=== PATIENT | male | born 1930 | race Caucasian/White ===

== ENCOUNTER → 2017-10-26 | Outpatient (CLI) | payer OTHER ==
[~2017-10-26] VITALS: Ht 170.2 cm; Wt 65.6 kg
[~2017-10-26] MED LIST: CENTRUM SILVER1 EAC2; DONEPEZIL HCL 55 M1; NAMENDA XR14 MG; OCUVITE ADULT1 EAC1; PAXIL10 MG; SIMVASTATIN20 MG
[2017-10-26 15:20] VITALS: BP 127/96
== END ==
LOC: SEN 10:22
DX: N18.9 Chronic kidney disease, unspecified (principal); E78.5 Hyperlipidemia, unspecified; F32.9 Major depressive disorder, single episode, unspecified; G30.9 Alzheimer's disease, unspecified; F02.80 Dementia in other diseases classified elsewhere, unspecified severity, without behavioral disturbance, psychotic disturbance, mood disturbance, and anxiety

== ENCOUNTER → 2018-07-26 | Outpatient (CLI) | payer OTHER | LOC: SEN 15:45 | DX: G30.9 Alzheimer's disease, unspecified (principal); E78.5 Hyperlipidemia, unspecified; N40.0 Benign prostatic hyperplasia without lower urinary tract symptoms; R63.4 Abnormal weight loss; R53.1 Weakness; R53.83 Other fatigue ==

== ENCOUNTER 2018-10-31 12:09 | Inpatient (IN) | payer OTHER ==
[~2018-10-31] VITALS: Ht 172.7 cm; Wt 55.4 kg
--- NOTE | ~2018-10-31 | D ---
[facility] [place] [address] DISCHARGE SUMMARY Name: STEFANIE MILLAN Room #: 528B-B DIS IN M.R.#: [id number] Admission: 10/31/18 ������������������ Attend Phys: Fabio Bourne DO Discharge: 11/06/18 ������������������ Date of : 31 Report #: [id number] THIS REPORT FOR: //name// CC: Fabio Bourne Daren Akkulugari DATE OF SERVICE: 11/06/2018 ATTENDING PSYCHIATRIST: Fabio Bourne DO. CASH APPLICATION REPRESENTATIVE AT THE TIME OF DISCHARGE: Sulma Curry MD. DISCHARGE DIAGNOSES: Major neurocognitive disorder, likely due to Alzheimer disease, advanced, with behavioral disturbance. Behavioral disturbance portion is improved. Medical comorbidities include hypertension, hyperlipidemia. DISCHARGE DIET: Mechanical soft with Ensure supplements t.i.d. with meals. Activity level as tolerated. The patient will require memory care 12/12 supervision. He is discharged back to the [facility], psychiatric and medical care per that facility. The patient may resume hospice care at the discretion of his 's decision maker would make, which is probably a good idea. DISCHARGE MEDICATIONS: As follows: Risperidone 1 mg p.o. b.i.d. for impulse control. Other medications have been stopped due to his advanced dementia and pill burden. LABORATORY DATA: This admission are as follows: On 10/31, white count 7.7. H and H 10.6 and 31.9, platelet count 220. Chemistries from 10/31, sodium 142, potassium 4.6, chloride 110, bicarbonate 25, BUN 36, creatinine 2.2, which gives him a GFR of 28, ALT 17, albumin 3.1. Urinalysis was negative other than trace protein. REASON FOR HOSPITAL ADMISSION: Agitation and refusal of cares. HOSPITAL COURSE: The patient was admitted to the Geriatric Psychiatry Unit. He did have wandering symptomatology and advanced dementia. Risperidone was started I believe at 0.5 mg twice a day, increased to 1 mg twice a day. He did have some instances of agitation, some brief hitting when he was being changed to bathe. This subsided generally as the risperidone was advanced. I do not expect him to be extinguished entirely. At the time of discharge, he was not suicidal or homicidal, was pleasant and calm. MUSCULOSKELETAL EXAM: He had a frail appearing gait, but was not requiring a walker. [facility] [address] [place] [address] DISCHARGE SUMMARY Name: STEFANIE MILLAN Room #: 528B-B DIS IN M.R.#: [id number] Admission: 10/31/18 ������������������ Attend Phys: Fabio Bourne DO Discharge: 11/06/18 ������������������ Date of : 31 Report #: [id number] MENTAL STATUS EXAMINATION: This is a well-developed, ill, 88-year-old male, appearing with advanced dementia. Attention impaired. Concentration impaired. Speech variable, nonsensical at times. Thought process often nonlinear. Thought content, varied themes, often were nonsensical, oriented to person. Denied SI or HI. He was assumed to be visual, auditory hallucinations at times. Memory noted to be grossly impaired. Insight impaired. Judgment impaired. Fund of knowledge well below average. Prognosis for this patient is poor. RECOMMENDATIONS: Resumption of hospice care. I think the benefits outweigh the risks of continuing the antipsychotic at this point. Life expectancy of this patient would be under a 12-month period. ��������������������������������������������� ���������������������������������������� By: ��������������������������������������������� [id number] Fabio Bourne, /nt
[2018-10-31 12:11] VITALS: BP 151/58
--- NOTE | 2018-10-31 12:47 | NUR ---
PER MATTHEWINJURY PREVENTION COORDINATOR WITH HOSPICE, REPORT FOLLOWS: Increased aggro bx, spitting out meds incl. Seroquel on 10/22/18. D/c'd all Rx incl. Haldol. and Seroquel. Started Seroquel gel, topical. Facility hopes to get pt admitted for in pt psych. Facility did not involve hospice in decision to send to hospital. Hospice reports that JENISE Gill, will come to hospital to consult with family about decision to revoke hospice to allow for in pt management. Matthew cell phone: [phone]
[2018-10-31 14:22] LABS: HEMATOCRIT 31.9 % (42.0-52.0); HEMOGLOBIN 10.6 gm/dL (14.0-18.0); MCH 29.9 pg (26.0-34.0); MCHC 33.3 g/dL (28.0-37.0); MCV 89.8 fL (80.0-100.0); RBC 3.56 mil/uL (4.50-6.00); RDW 14.7 % (10.5-14.5); WBC 7.7 thou/uL (4.0-11.0)
[2018-10-31 14:28] LABS: CALCIUM 9.2 mg/dL (8.5-10.1); CREATININE 2.2 mg/dL (0.7-1.3); POTASSIUM 4.6 mmol/L (3.5-5.1)
[2018-10-31 14:29] LABS: URINE BILIRUBIN NEGATIVE (Negative); URINE BLOOD NEGATIVE (Negative); URINE CLARITY CLEAR; URINE COLOR YELLOW; URINE GLUCOSE-RANDOM* NEGATIVE (Negative); URINE KETONES NEGATIVE (Negative); URINE LEUKOCYTES-REFLEX NEGATIVE (Negative); URINE NITRITE-REFLEX NEGATIVE (Negative); URINE PROTEIN (DIPSTICK) TRACE (Negative); URINE UROBILINOGEN 0.2 E.U./dl (0.2-1.0)
[2018-10-31 14:34] LABS: ALBUMIN 3.1 g/dL (3.4-5.0); TOTAL BILIRUBIN 0.4 mg/dL (<0.1-1.0); TOTAL PROTEIN 6.7 g/dL (6.4-8.2)
[2018-10-31 15:44] VITALS: BP 140/75
--- NOTE | 2018-10-31 16:00 | NUR ---
PT ARRIVED WITH [facility] PT IN W/C FROM [facility]. PT ADMITTED FOR AGGRESSIVE BEHAVIOR AGAINST STAFF, REFUSING TO TAKE PO MEDS, SPITTING MEDS OUT, AND FIGHTING ADLS. PT WAS TRYING TO KICK AT NURSE WHEN PUTTING GRIPPER SOCKS ON. PT ALSO SWATTING AT WHEN SHE WAS TRYING TO PUT SOCK ON OTHER FOOT. PT CURSING ALSO. PT STATED HE CAN WALK WITHOUT WALKER. PT ORIENTED TO SELF. SIGNED ADMIT PAPERS DUE TO BEING DPOA. PT APPEARS COMFORTABLE EXCEPT WHEN PUTTING ON GRIPPER SOCKS. PT HAS LONG TOE NAILS.
[2018-10-31 17:00] VITALS: BP 126/95
--- NOTE | 2018-10-31 17:30 | NUR ---
PT EATING DINNER WITH AT SIDE. PT FEEDING SELF.
--- NOTE | 2018-10-31 18:00 | NUR ---
LAYED PT DOWN IN BED. PT DIDN'T HAVE A BRIEF ON, STATED THAT HE USUALLY WEARS ON. PT HAS BED ALARM ON.
[2018-10-31 21:17] VITALS: BP 104/51
--- NOTE | 2018-10-31 22:03 | NUR ---
ASSUMED CARE OF THE PT AT 1914 PM. THE PT WAS LYING ON HIS RIGHT SIDE IN BED WHEN THIS PRODUCT TRAINER CAME ON DUTY. THE PT ATTEMPTED TO HIT THIS PRODUCT TRAINER WHEN SHE WENT TO ASSESS HIM. REMAINS ON 12 MINUTE CHECKS FOR HIS SAFETY.
--- NOTE | 2018-11-01 00:35 | NUR ---
THE PT REFUSED HIS HS MEDICATION EARLIER IN THE SHIFT. ATTEMPTED TO REDIRECT THE PT WITH NO SUCCESS. REMAINS ON 12 MINUTE CHECKS FOR HIS SAFETY.
--- NOTE | 2018-11-01 06:41 | NUR ---
THE PT SLEPT 8.6 HOURS LAST NIGHT.
[2018-11-01 07:30] VITALS: BP 114/92
--- NOTE | 2018-11-01 08:25 | NUR ---
PT UP WALKING AROUND THIS AM IN DAY ROOM. PT REFUSED TEMP TO BE TAKEN. HAD TO HOLD HAND IN ORDER FOR BP TO BE TAKEN, PT STANDING WITH AM VITALS. PT NEEDED ENCOURAGED TO SIT DOWN TO EAT. PT DID TAKE RISPIRADOL CRUSHED IN PUDDING, ONLY TOOK ONE BITE OF PUDDDING.
[2018-11-01 09:14] VITALS: BP 114/92
--- NOTE | 2018-11-01 12:05 | NUR ---
SW called in spoke with pt in schedule a family meeting. CARL schedule a meeting November 05, 2018.
--- NOTE | 2018-11-01 14:00 | NUR ---
CHECKED PT FOR INCON. WASN'T INCON. AT THIS TIME. PT LAYED DOWN FOR NAP.
--- NOTE | 2018-11-01 15:56 | NUR ---
PT STILL WALKING AROUND UNIT. PT HASN'T BEEN ABLE TO ATTEND GROUP TODAY. TOO DISRUBTIVE IN GROUPS WITH WONDERING AROUND.
--- NOTE | 2018-11-01 17:16 | NUR ---
PT DIDN'T SIT VERY LONG FOR DINNER. PT DID EAT A FEW BITES OF POTATOES AND TURKEY, AND ALSO PAGAN ICEY.
--- NOTE | 2018-11-01 17:52 | H ---
[facility] [place] [address] HISTORY AND PHYSICAL Name: STEFANIE MILLAN Room #: 528B-B ADM IN M.R.#: [id number] Admission: 10/31/18 ������������������ Attend Phys: Fabio Bourne DO Discharge: ������������������ Date of : 31 Report #: [id number] THIS REPORT FOR: //name// CC: Fabio Bourne Daren Akkulugari DATE OF SERVICE: 10/31/2018 INPATIENT PSYCHIATRIC EVALUATION [employer]CHOOL ART TEACHER: Rodrigo Ventura MD REASON FOR ADMISSION: Agitation, resistive to care at [facility]. SOURCES OF INFORMATION: long term records, chart review from the ER, interview with the patient as well as a bit of collateral from the patient's . HISTORY OF PRESENT ILLNESS: Is as follows: This is an 88-year-old male who presented to the Emergency Department at [facility] in [place], [place]. The patient was initially referred by the [facility] where he resides. He does have a major neurocognitive disorder. In the last one week, he has been increasingly agitated, aggressive with staff and confused. He is no longer willing to take his daily medications and the spouse is unsure of when he last took them. The patient was formally on hospice. His decided to revoke it in order to be evaluated and admitted to the hospital. PAST MEDICAL HISTORY: The patient has a past medical history of elevated cholesterol, hypertension, Alzheimer's related dementia. HOME MEDICATIONS: Multivitamin- Ocuvite 50+ soft gels, donepezil 5 mg daily, memantine XR probably 28 mg dose, simvastatin and paroxetine 10 mg daily. SOCIAL HISTORY: The patient does not drink, smoke or use illicit drugs currently. Remote history is unknown. REVIEW OF SYSTEMS: From the Emergency Room: CONSTITUTIONAL: Denies fever, chills, malaise or unexplained weight change. EYES: Denies eye pain, visual change or discharge. HENT: Denies hearing changes, ear drainage, ear infections, ear pain, neck pain or neck stiffness. RESPIRATORY: Denies cough, shortness of breath, hemoptysis or respiratory distress. [facility] [address] [place] [address] HISTORY AND PHYSICAL Name: STEFANIE MILLAN Room #: 528B-B [facility] IN M.R.#: [id number] Admission: 10/31/18 ������������������ Attend Phys: Fabio Bourne DO Discharge: ������������������ Date of : 31 Report #: [id number] CARDIOVASCULAR: Denies chest pain with exertion or edema. GASTROINTESTINAL: Denies abdominal pain, nausea, vomiting or diarrhea. GENITOURINARY: Denies burning, frequency or dysuria. MUSCULOSKELETAL: Denies back pain, joint pain, muscle weakness or myalgias. SKIN: Denies rash. NEUROLOGIC: Denies weakness, headache or loss of consciousness. PSYCH: As above, otherwise 10-point review of systems done in the Emergency Room was negative. PHYSICAL EXAMINATION: VITAL SIGNS: The patient's vital signs on the day of admission, BP 151/58, pulse ox 94% on room air, temperature 36.9, pulse 84, respirations 17, weight 55.423 kilos. Physical exam was grossly normal. MUSCULOSKELETAL: Not ambulatory to my examination. MENTAL STATUS EXAM: This is a well-developed, ill-appearing male appearing at least stated age. Attention limited. Concentration limited. Speech is normal in rate. Thought process linear limited. Thought content focused on not giving up blood samples. No psychomotor retardation. Some psychomotor agitation. Denied auditory, visual, or tactile hallucinations. Denied suicidal intent. Some helplessness and hopelessness. Homicidal intent and plan. Memory grossly noted to be impaired. Insight impaired. Judgment impaired. Fund of knowledge below average. The patient was resistive with obtaining blood and urine sample. He did have to be forcibly held down. Review of medications from the nursing facility, most recent weight was 121.5 pounds, he had a number of PRNs including hyoscyamine, Dulcolax, lorazepam, Haldol, acetaminophen, ondansetron, protein nutritional shake and Seroquel looks like it was topical Seroquel. The patient also has history of BPH. Reliable history could not be obtained. LABORATORY AND DIAGNOSTIC DATA: Urine protein trace. Labs: Sodium 142, potassium 4.6, chloride 110, bicarbonate 25, anion gap 7, BUN 36, creatinine 2.2, estimated GFR 28, glucose 90, calcium 9.2, total bili 0.4, AST 21, ALT 17, alk phos 61, total protein 6.7, albumin 3.1. White count 7.7. H and H 10.6 and 31.9, platelet count 220. Urinalysis is negative. FORMULATION: An 88-year-old male sent from nursing facility for aggressive resistive behaviors. Hospice revoked, now requesting formal psychiatric treatment. PLAN: Admit to Geriatric Psychiatry, Evaluate and Stabilize Is as follows: Start risperidone 0.25 mg p.o. b.i.d. for impulsivity and aggressiveness. Normal PRNs were ordered. We will keep the medication dose low due to his kidney function. ESTIMATED LENGTH OF STAY: 7-[address] [address] HISTORY AND PHYSICAL Name: STEFANIE MILLAN Room #: 528B-B ADM IN M.R.#: [id number] Admission: 10/31/18 ������������������ Attend Phys: Fabio Bourne DO Discharge: ������������������ Date of : 31 Report #: [id number] STRENGTHS: He is insured. He has supportive family. WEAKNESSES: Advance of age and advance of neurodegenerative disorder, deconditioning. Time spent on interview, review of records, coordination of care is approximately 60 minutes. Greater than 50% was spent on coordination of activities. ��������������������������������������������� <ELECTRONICALLY SIGNED> ���������������������������������������� By: Fabio Bourne DO ��������������������������������������������� 11/01/18 1752 [id number] 15 Fabio Bourne DO /nt
[2018-11-01 19:40] VITALS: BP 115/92
[2018-11-02 00:56] VITALS: BP 115/92
--- NOTE | 2018-11-02 03:14 | NUR ---
PT OUT IN DAY AREA, WANDERING AIMLESSLY. UNABLE TO RESPOND TO SIMPLE QUESTIONS ABOUT FEELINGS AND GOALS. FAIRLY COOPERATIVE WITH PHYSICAL ASSESSMENT, BUT NOT WITH TAKING HIS ORAL TEMP. TOOK HS MED CRUSHED IN APPLESAUCE, BUT REFUSED TO TAKE MORE THAN 2 SPOONFULS, BUT ENOUGH TO INGEST MEDS. NEEDED TO BE REMOVED FROM UNMADE BED IN HIS ROOM AND ASSISTED TO HIS REGULAR BED. ONCE IN HIS OWN BED, SLEPT WELL THROUGH THE NIGHT TO THIS POINT.
[2018-11-02 08:20] VITALS: BP 142/68
--- NOTE | 2018-11-02 09:26 | NUR ---
VERY INTRUSIVE THIS AM-PICKING UP FOOD OFF OF PEERS PLATES AT BREAKFAST AND EATING IT-ATTEMPTING TO PUSH FEMALE PEER IN WHEELCHAIR-RAMMING WHEELCHAIR INTO LOCKED EXIT DOOR AND OFFICE DOORS-CONVERSATION INCOHERENT WILL STATE 1-2 UNRELATED WORDS -RESTLESS APPEARS UNABLE TO SIT STILL FOR ANY PERIODS OF TIME-DID TAKE MEDS CRUSHED IN APPLESAUCE-NO FACIAL GRIMACING OR VERBALIZATIONS OF PAIN/DISCOMFORT-DENIES PAIN WHEN ASKED-GAIT STEADY WITHOUT ASSISTIVE DEVICES.
--- NOTE | 2018-11-02 12:51 | NUR ---
PSYCHOSOCIAL ASSESSMENT Diagnosis: MAJOR NEUROCOGNITIVE DISORDER Admit Date: 10/31/18 Psychiatrist: ANDREEA Symptoms associated with current admission: Violence/aggression Activity level change Poor impulse control Presenting problems: Pt was exhibiting aggression towards staff, and his peers. Precipitating Factors: Non-compliance psychothx Non-compliance medication Comments: Pt was not compliant with his medication. History of High Risk Behavors: Hx violence/aggression Suicide Risk Factors: D A-Signs of alcohol/substance abuse w/ suicide ideation B-Recent suicidal thoughts or attempts C-Recent thoughts or attempts of harming someone else D-Altered mental status due to psychiatric/chem dep etiology E-The behavior exists - add comment PSYCHIATRIC HISTORY Age of onset: 88 Prior hospitalizations: Denies hx hospitalization Hospital names and dates, if available: Most Recent Outpatient HX: Psychiatrist Additional information: Legal Status: DPOA Guardian/Conservatorship type: DPOA Contact name: Leyla Dyer Contact phone: [phone] Other: Name: Phone: Other legal issues: (Arrests/convictions Current Status) None P.O. Name and Phone #: FAMILY HISTORY Place of : [place], [place] Raised in: [place] # Siblings & order: Pt had a sister, oldest Describe relationships within family of origin: Pt had a sister who 10 years ago. Pt visited his sister everytime he was in [place] Any psychiatric or substance abuse problems within family of origin: N Has patient been sexually or physically abused, neglected or been taken advantage of financially? N Has the abuse been reported? N Other pertinent family information: Marital history/significant relationships: Domestic violence: N Children ages & who is caring for them: Pt has four adult children Is child welfare involved? N Drug history: None Alcohol Use: Frequency: Quantity: Have you ever felt you ought to Cut down on drinking? Have people Annoyed you by criticizing your drinking? Have you ever felt bad or Guilty about your drinking? 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 AXIS SCREENING TOOL [place] I Mood Disorders: Depression [place] II Personality/Mental Retardation: [place] III Medical Impairment: Constipation HTN Alzheimer's [place] IV Problem(s) with: Interaction w/ legal sys Other psych/environ prob [place] V: 40-Major impairment Additional [place] comments: PERSONAL BACKGROUND Relevant cultural issues (ethnicity, values, beliefs, spiritual): Spiritual Protestant: He believes in God Importance of nondenominational to patient: Medium What hobbies/interests does the patient have? 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 Y Occupational/Work: Do you work? N Do you want to work? N How many hours do you work/week? 0 How many jobs have you had in the past 5 years? 0 Do you need assistance finding a job? N Does the patient need assistance in job training? N Source of income: [place] SSI Does patient have a Payee? Y Payee name: Leyla Newton Approximate monthly income: 1000 Does patient have adequate funds for next 30 days? Y Education background: Post-graduate school Highest grade completed: 12th grade Other Educational/training programs: Functional deficits: Explain functional deficits: Current living situation: Facility (B&C, SNF,ILF) Address/phone where pt. is living: [facility] Does the patient plan to continue there after DC? Yes Patient lives with: Unrelated adult Will family/significant other be involved in treatment? 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 Patient's perception of current social insurance adviser/case management needs: Pt stated that SS is someone who assist with care. PRELIMINARY DISCHARGE PLAN Discharge plan/Community resource contacts: Pt will d/c to [facility] Discharge needs: Pt will be transported by Problems anticipated on discharge: Compliance w/ med regimen Comments: (factors affecting DC plan/pt. response/interventions) Pt will be d/c to a memory care unit in [facility]
[2018-11-02 20:13] VITALS: BP 83/40
--- NOTE | 2018-11-03 00:04 | NUR ---
This nurse assumed care of patient at 1900. Patient ambulating about the unit at start of shift. Patient needed multiple re-directions to leave other peers rooms. Patient had difficulty sitting in one place more than a couple minutes. Patient intrusive with other staff/peers at times. Patient attempting to push other w/c's and use others walker. Patient was able to eat 100% snack with frequent cues. Patient took medications crushed without difficulty. Patient alert and oriented x person only. Patient speaking using word salad. Patient rambling and mumbling to self and to others. Difficulty answering yes/no questions. Patient would start to talk about other irrelevant topics. Patient had difficulty following verbal cues alone but was easier to re-direct with verbal and tactile cues combined. Patient was assisted with toileting needs and assisted to bed. Patient has been in bed resting quietly.
[2018-11-03 07:25] VITALS: BP 113/65
--- NOTE | 2018-11-03 16:03 | NUR ---
[id number]: Report rec from [facility] shift, care assumed. Ambulatory from room to DR for a.m. meal, feeds self with set-up assistance, appetite poor, requires close monitoring due to impaired cognitive status. Takes meds crushed with ice cream, resistant to staff. Wanders DR jaja and moves furniture, frequent re-direction needed.
[2018-11-03 19:46] VITALS: BP 104/72
--- NOTE | 2018-11-04 05:16 | NUR ---
Care assumed of patient at 1900: Patient ambulating about the unit upon start of shift. Patient wandering down halls, in and out of rooms. Patient monitored q12 minutes and PRN for safety. Patient able to report his last name to this nurse. Patient unable to focus to answer any other questions. Patient speaking in word salad. Unknown who he is speaking to or what it is about. Some words audible, others are mumbled. Patient took medications crushed without difficulty. Patient hyperactive. Assessment completed while walking the halls. Patient ate 2 bites of snack then started to ambulate and could not focus. Patient moving furniture about day room. Patient incontinent of bladder and provided sorin care by staff. Patient resistive of cares at times. Needed encouragement to allow staff to assist him. Patient was able to lay in bed and has been resting quietly throughout the night.
[2018-11-04 07:30] VITALS: BP 115/58
--- NOTE | 2018-11-04 11:32 | NUR ---
PT OBSERVED TO HAVE TENSE "PAINED" FACIAL EXPRESSION-RESTLESS APPEARS UNABLE TO SIT STILL FOR ANY EXTENDED PERIODS OF TIME-INTRUSIVE ENTERING THE ROOMS OF PEERS AND TAKING FOOD OFF OF OTHERS TRAYS-WILL WANDER INTO WOMANS ROOMS AND ATTEMPT TO GET INTO BED WITH THEM-WILL BECOME RESISITVE WITH REDIRECT AND AGITATED AT TIMES BUT NOT PHYSICALLY COMBATIVE BEHAVIOR REPORTED OR OBSERVED
--- NOTE | 2018-11-04 11:42 | NUR ---
Sw redirected pt on several occasions and provided reassurance and guided him to sit and rest and offered him something to drink which he declined. Pt was able to rest and sit for awhile, he was unable to communicate all of his needs but he was in pleasant mood and easily redirected
--- NOTE | 2018-11-04 15:42 | NUR ---
Wilmar faxed updated notes to Emelia Jarvis
[2018-11-04 19:50] VITALS: BP 105/59
[2018-11-04 19:59] VITALS: BP 105/59
--- NOTE | 2018-11-05 06:25 | NUR ---
Care assumed of patient at 1900 on 11/04/18. Patient ambulating about day room and hallways. Patient re-directed out of other rooms frequently. Patient easier to re-direct this shift. Patient appears to be able to process directions, verbal and tactile cues, with less difficulty. Patient took medication crushed with applesauce with no difficulty. Patient incontinent of bladder. Madiha care provided. Patient speaking to furniture, [place], etc. Unknown of /VH. No s/s of distress present. Appears relaxed. Alert and oriented to person only. Perplexed look present with difficulty making eye contact. Patient assisted to bed and slept 8.4 hours this shift.
[2018-11-05 07:45] VITALS: BP 117/51
[2018-11-05 08:30] VITALS: BP 117/51
--- NOTE | 2018-11-05 09:00 | NUR ---
PT EATING BREAKFAST THIS AM. PT TOOK MED THIS AM CRUSHED IN OATMEAL. PT LUNGS CLEAR. PT EASILY DISTRACTED. PT GETS UP AND WALKS AROUND THE UNIT. PT HOLDS ONTO GOWN INTO A BALL IN FRONT OF HIM. PT RAMBLES WHEN SPEAKING.
[2018-11-05] MEDS ORDERED: RISPERDAL 1 MG T1 MG PO (12:18)
--- NOTE | 2018-11-05 16:13 | NUR ---
CARL spoke with Debbie in admission at [facility]. She mention that pt was showing agitation, and resistance, and the pt will not be able to come back with those displayed behaviors. She mention that pt will need a letter from the psychiatrist stating that he is not a danger to self or others. CARL faxed over the document. CARL explained that Dr. Bourne will accept the pt for one more day, and then he will need to d/c tomorrow, November 06, 2018.
[2018-11-05 20:04] VITALS: BP 151/87
--- NOTE | 2018-11-06 03:43 | NUR ---
NURSES NOTES - ASSUMED CARE OF PT AT APPROXIMATELY 1900. THROUGHOUT THE SHIFT THE PATIENT HAS BEEN IN BED WITH EYES CLOSED LAYING ON HIS LEFT SIDE. RR ARE EVEN AND UNLABORED, NO S/S OF DISTRESS. NOTED. DURING MED PASS THIS NURSE WAS UNABLE TO AROUSE PT EVEN THOUGH HE WOULD MOVE HIS BODY FURTHER AWAY. THIS NURSE ASKED IF HE WAS REFUSING MEDS AND THIS NURSE RECEIVED AND UP DOWN MOTION OF HIS HEAD. HE WOULD NOT FURTHER DIVULGE ANY OTHER INFORMATION TO THIS NURSE. WILL CONTINUE TO MONITOR MOOD AND BX FOR CHANGES.
--- NOTE | 2018-11-06 05:46 | NUR ---
IT WAS REPORTED TO THIS NURSE THAT STEFANIE GOT SIX HOURS OF SLEEP LAST NIGHT.
--- NOTE | 2018-11-06 08:12 | HC ---
[facility] [place] [address] CONSULTATION Name: STEFANIE MILLAN Room #: 528B-B ADM IN M.R.#: [id number] Admission: 10/31/18 ������������������ Attend Phys: Fabio Bourne DO Discharge: ������������������ Date of : 32 Report #: [id number] THIS REPORT FOR: //name// CC: Fabio Bourne Daren Akkulugari DATE OF SERVICE: 11/02/2018 INTRODUCTION: The patient is an 88-year-old male who has been admitted to the Behavioral Health floor at [facility]. I am being consulted to see him for a general foot care as he has severe onychodystrophy and has not had a nail trimming in over a year. PAST MEDICAL HISTORY: With regard to this consultation is otherwise unremarkable. PHYSICAL EXAMINATION: Pedal exam reveals dorsalis pedis, posterior tibial pulses graded at 1/4. Capillary refill time is within normal limits. Neurologically, the patient is grossly intact to all sensory stimulus including sharp, dull, proprioceptive and vibratory sensations. These assessments are somewhat difficult as the patient is not completely oriented and slightly combative. His nails are thickened and elongated, show clinical evidence of onychomycosis in varying degrees. Several of his nails are 2-3 cm in length. There are no acute findings with regard to his clinical examination. Nails were debrided. No underlying pathology was noted at the time of treatment. IMPRESSION: Onychodystrophy associated with onychomycosis, bilateral feet. PLAN: The patient's nails were debrided as mentioned. No additional treatment was required. It has been my pleasure having the opportunity of caring for the patient. I would be pleased to follow up with him upon request. ��������������������������������������������� <ELECTRONICALLY SIGNED> ���������������������������������������� By: Girish Landin DPM ��������������������������������������������� 11/06/18 0812 [id number] Girish Landin DPM /nt
[2018-11-06 08:55] VITALS: BP 143/69
--- NOTE | 2018-11-06 16:02 | NUR ---
Patient Name: STEFANIE MILLAN Admission Date: 10/31/18 DISCHARGE PLAN: Pt will d/c to [facility] Assessment: Pt was assessed by Dr. Bourne, and diagnosed with Major Neurocognitve Disorder Level II Assessment: None Transportation: Pt will be d/c by [facility] staff. Special Instructions/Notes: Pt will need a memory care unit. DISCHARGE TO FACILITY: Memory Care unit Facility: [facility] Fax: Address: [address] [place] [phone] Contact Name: Debbie PCP: BRYAN Psychiatrist: BRENT psychiatrist
--- NOTE | 2018-11-06 16:43 | NUR ---
ASSUMED CARE OF PATIENT AT 0715, [facility]. PATIENT SLEEPING IN BED MOST OF THE MORNING, PATIENT VERY AGITATED THIS AM, WHEN TRYONG TO WAKE HIM UP, PATIENT DID TAKE 1 TABLET THIS AM. PATIENT WAS INCONTINENT X 1 THIS AM, PATIENT CLEANED UP AND BRIEF APPLIED, PATIENT CONTINUED TO REST IN THE BED, THIS RN PUT BOTTOMS ON THE PATIENT WITH HELP, AND HE AMBULATED OUT TO THE DINING AREA, WHERE HE HAD LUNCH PRIOR TO DISCHARGE. PATIENT WILL BE DISCHARGING TO [facility], REPORT CALLED TO LORENE MCKEE/CLAUDIA AT THE FACILITY. ALL PERSONAL BELONGINGS SENT WITH THE PATIENT, AND ALL DISCHARGE PAPERWORK SENT WITH THE TRANSPORTER.
== END 2018-11-06 15:43 | DRG 56 ==
LOC: ER 12:09 → EROBS 15:13 → SBH 15:13
PROVIDERS: Physician Assistant; ADMIT Psychiatry & Neurology Psychiatry
DX: G30.9 Alzheimer's disease, unspecified (principal); E43 Unspecified severe protein-calorie malnutrition; F02.81 Dementia in other diseases classified elsewhere, unspecified severity, with behavioral disturbance; Z68.1 Body mass index [BMI] 19.9 or less, adult; E78.00 Pure hypercholesterolemia, unspecified; E78.5 Hyperlipidemia, unspecified; I10 Essential (primary) hypertension; L60.3 Nail dystrophy; B35.1 Tinea unguium; Z79.899 Other long term (current) drug therapy; Z91.14 Patient's other noncompliance with medication regimen
CPT/HCPCS: 10880